=== PATIENT | female | born 1995 | race African-American/Black ===

== ENCOUNTER 2018-07-01 10:17 | Inpatient (IN) | payer OTHER ==
[2018-07-01 10:34] LABS: VENOUS BASE EXCESS -11.1 (-2.0-2.0); VENOUS O2 SATURATION 76.1 % (60.0-80.0); VENOUS PARTIAL PRESSURE CO2 29.1 mmHg (38.0-50.0); VENOUS PARTIAL PRESSURE O2 50.8 mmHg (30.0-50.0); VENOUS STANDARD HCO3 15.3 MEQ/L; VENOUS TOTAL CO2 14.9 MEQ/L (24.0-28.0)
[2018-07-01] MEDS: NS 1,000 ML IV (10:34)
[2018-07-01 10:42] LABS: BASO % 0.8 % (0.0-1.0); EOS # 0.1 10^3/uL (0.0-0.50); EOS % 2.3 % (0.0-3.0); HEMATOCRIT 38.3 % (36.0-47.0); HEMOGLOBIN 12.6 g/dl (12.0-15.5); IMMATURE GRANULOCYTE % 0.3 % (0-3.0); LYMPH # 1.3 10^3/uL (1.5-6.5); MEAN CORPUSCULAR HEMOGLOBIN 29.9 pg (27.0-33.0); MEAN CORPUSCULAR HGB CONC 32.9 g/dl (32.0-36.5); MONO # 0.3 10^3/uL (0.0-0.8); MONO % 7.8 % (0.0-5.0); NEUTROPHILS # 2.1 10^3/uL (1.8-7.7); NEUTROPHILS % 54.8 % (36.0-66.0); PLATELET COUNT, AUTOMATED 264 10^3/uL (150-450); RED BLOOD COUNT 4.21 10^6/uL (4.00-5.40); RED CELL DISTRIBUTION WIDTH 12.9 % (11.5-14.5); WHITE BLOOD COUNT 3.9 10^3/uL (4.0-10.0)
[2018-07-01] MEDS ORDERED: GLUCOSE 4 GM CHEW TABLET PO (10:45)
[2018-07-01] MEDS ORDERED: DEXTROSE 50% 50 ML SYRINGE IV (10:45)
[2018-07-01] MEDS ORDERED: GLUCAGON FOR INJ 1 MG VIAL (J1610) SC (10:45)
[2018-07-01 10:56] LABS: CONTROL LINE HCG INT CTR LINE PRESENT; HCG, SERUM QUALITATIVE NEGATIVE (NEGATIVE)
[2018-07-01] MEDS ORDERED: D5W/0.45% SODIUM CHLORIDE 1,000 ML IV (11:00)
[2018-07-01 11:01] LABS: ANION GAP 9 MEQ/L (8-16); BLOOD UREA NITROGEN 12 MG/DL (7-18); CALCIUM LEVEL 9.1 MG/DL (8.5-10.1); CARBON DIOXIDE LEVEL 27 MEQ/L (21-32); CHLORIDE LEVEL 109 MEQ/L (98-107); CREATININE FOR GFR 0.88 MG/DL (0.55-1.30); GLOMERULAR FILTRATION RATE > 60.0 (>60); GLUCOSE, FASTING 80 MG/DL (70-100); SODIUM LEVEL 145 MEQ/L (136-145); THYROID STIMULATING HORMONE 0.888 uIU/ML (0.358-3.740)
[2018-07-01] MEDS: levETIRAcetam INJection 500 MG in D5W MINI-BAG PLUS 100 ML IV ×2 (11:53→22:53)
[2018-07-01 12:14] LABS: AMMONIA < 10 uMOL/L (<32)
[2018-07-01 12:35] LABS: PROLACTIN 10.7 NG/ML
[2018-07-01] MEDS ORDERED: LORazepam 2 MG/ML VIAL (J2060) IV (13:00)
[2018-07-01] MEDS: HEPARIN SOD (PORCINE) 5000 UNITS/ML VIAL SQ ×2 (15:39→22:54)
[2018-07-01 15:46] LABS: BEDSIDE GLUCOSE 69 MG/DL (70-105)
[2018-07-01 20:37] LABS: BEDSIDE GLUCOSE 97 MG/DL (70-105)
[2018-07-02 05:20] LABS: HEMATOCRIT 33.8 % (36.0-47.0); HEMOGLOBIN 11.1 g/dl (12.0-15.5); MEAN CORPUSCULAR HEMOGLOBIN 29.6 pg (27.0-33.0); MEAN CORPUSCULAR HGB CONC 32.8 g/dl (32.0-36.5); MEAN CORPUSCULAR VOLUME 90.1 fl (80.0-96.0); PLATELET COUNT, AUTOMATED 213 10^3/uL (150-450); RED BLOOD COUNT 3.75 10^6/uL (4.00-5.40); RED CELL DISTRIBUTION WIDTH 12.7 % (11.5-14.5); WHITE BLOOD COUNT 3.6 10^3/uL (4.0-10.0)
[2018-07-02 05:42] LABS: ANION GAP 8 MEQ/L (8-16); BLOOD UREA NITROGEN 14 MG/DL (7-18); CALCIUM LEVEL 8.3 MG/DL (8.5-10.1); CARBON DIOXIDE LEVEL 25 MEQ/L (21-32); CHLORIDE LEVEL 111 MEQ/L (98-107); CREATININE FOR GFR 0.78 MG/DL (0.55-1.30); GLOMERULAR FILTRATION RATE > 60.0 (>60); GLUCOSE, FASTING 82 MG/DL (70-100); SODIUM LEVEL 144 MEQ/L (136-145)
[2018-07-02] MEDS: HEPARIN SOD (PORCINE) 5000 UNITS/ML VIAL SQ (06:01)
[2018-07-02] MEDS: levETIRAcetam INJection 500 MG in D5W MINI-BAG PLUS 100 ML IV (11:12)
== END 2018-07-02 12:30 | disposition home or self-care (01) | DRG 101 ==
LOC: M ED 10:17 → M ED INP 10:32 → M PCU 15:22
DX: R56.9 Unspecified convulsions (principal); A08.4 Viral intestinal infection, unspecified; F41.9 Anxiety disorder, unspecified; E16.2 Hypoglycemia, unspecified; Z88.2 Allergy status to sulfonamides; R55 Syncope and collapse

== ENCOUNTER 2019-01-06 07:56 | Emergency (ER) | payer OTHER ==
[~2019-01-06] VITALS: Ht 157.5 cm; Wt 50.4 kg
[2019-01-06 07:56] VITALS: BP 129/75
[~2019-01-06 07:56] MED LIST: KEPP1TAB PO; birth control PO
--- NOTE | 2019-01-06 09:32 | REP ---
LEFT ANKLE, FOUR VIEWS: ANKLE: There is no evidence of an acute fracture, dislocation or intrinsic bone disease. The ankle mortise is anatomic. IMPRESSION: No fracture or dislocation. Electronically Signed by Holland Kinney MD 01/09/2019 05:02 P
== END 2019-01-06 09:11 | disposition home or self-care (01) ==
LOC: M ED 07:56
DX: S90.02XA Contusion of left ankle, initial encounter (principal); W06.XXXA Fall from bed, initial encounter; Y92.013 Bedroom of single-family (private) house as the place of occurrence of the external cause; Z88.1 Allergy status to other antibiotic agents; Z88.2 Allergy status to sulfonamides